=== PATIENT | male | born 1995 | race Caucasian/White ===

== ENCOUNTER 2023-03-01 16:20 | Emergency (ER) | payer OTHER, BC, SELFPAY ==
[2023-03-01 16:25] VITALS: BP 161/96; PULSE 93; RESP 16; TEMP 36.5; O2SAT 96; BMI 48.8
--- NOTE | 2023-03-01 16:27 | ED_ITS ---
HPI - General Adult General Chief complaint: Eye Problems Stated complaint: forgeign object right eye ,work inj Time Seen by Provider: 03/01/23 17:39 Source: patient Mode of arrival: ambulatory History of Present Illness HPI narrative: 27-year-old male denies being a diabetic and states that he was at work with protective lenses on and hammering on an object in and states that the glasses fell down and something got into his right eye. He did copiously irrigate the right eye but states he is still having residual discomfort. Related Data Previous Rx's Medication Instructions Recorded erythromycin 5 mg/gram (0.5 %) eye 1 appl ophthalmic-Right DAILY 3 03/01/23 ointment days #3.5 grams Allergies Allergy/AdvReac Type Severity Reaction Status Date / Time naproxen [From NAPROSYN] Allergy Unknown HIVES Verified 03/01/23 16:29 Review of Systems Review of Systems: Pertinent positives and negatives as stated in HPI PMFSH Past Medical History Source: nursing notes reviewed Physical Exam ED Vital Signs: Vital Signs - 24 hr 03/01/23 16:25 Temperature 97.7 F Pulse Rate 93 Respiratory Rate 16 Blood Pressure 161/96 H Pulse Oximetry 96 Oxygen Delivery Method Room Air BMI result Body Mass Index 48.8 VITAL SIGNS: Reviewed. GENERAL: Well developed, well nourished, in no acute distress. HEAD: Normocephalic/atraumatic EYES: PERRLA, EOMI, fluorescein exam did not demonstrate corneal abrasion and no evidence to suggest foreign body EARS: Ext canals without abnormality NOSE: Nares patent bilateral OROPHARYNX: no oral lesions noted, posterior pharynx clear NECK: Supple, no adenopathy LUNGS: Normal breath sounds. No adventitious sounds or accessory muscle use. SpO2<96> CARDIOVASCULAR: Regular rate and rhythm without noted murmurs ABDOMEN: Soft, non-tender, non-distended with bowel sounds. MUSCULOSKELETAL: No tenderness, deformities, or effusions noted on gross inspection. EXTREMITIES: No cyanosis, clubbing or edema. SKIN: Inspection of the skin reveals no rashes NEUROLOGIC: Alert and oriented x 4. Strength and sensation to light touch were grossly intact x 4. Course Course Course Narrative: This is an RME: Additional HPI, ROS, PE not included below [facility] 27 [facility] male presents w/ FB sensation to R eye lid feels like there is metal in his eye. Was wearing safety googles. Plan- stain, visual acuity Medications Administered Discontinued Medications Generic Name Dose Route Start Last Admin Trade Name Joanie PRN Reason Stop Dose Admin Fluorescein Sodium 1 strip 03/01/23 16:28 03/01/23 17:41 Fluorescein Sodium Strip EYE-BOTH 03/01/23 16:29 1 strip ONCE ONE Administration Tetracaine HCl 3 drop 03/01/23 16:28 03/01/23 17:41 Tetracaine Hcl/Pf 0.5% Oph Naz 4 Ml Drops EYE-BOTH 03/01/23 16:29 3 drop ONCE ONE Administration Medical Decision Making Medical Decision Making MDM Narrative: 27-year-old male with history and clinical presentation consistent with iritis after foreign body. After fluorescein exam there was no evidence of retained foreign body within the eye, no double or blurry vision, no pain on extraocular movement, good pupillary reflex,. Further irrigated patient's I will discharged on 3 days of daily erythromycin ointment. Differential Diagnosis Please see the discussion above Discharge Plan Discharge Clinical Impression: Foreign body in eyeball, right, Iritis Patient Disposition: Home, Self-Care Instructions: Iritis (ED), Eye Foreign Body (ED) Additional Instructions: 1. Take medication as prescribed. Prescriptions: New erythromycin 5 mg/gram (0.5 %) ointment 1 appl ophthalmic-Right DAILY 3 Days Qty: 3.5 0RF
[2023-03-01] MEDS: Fluorescein Sodium STRIP 1 STRIP EYE-BOTH (17:41)
[2023-03-01] MEDS: Tetracaine HCl/PF 0.5% Oph Sol 4 ML DROPS 3 DROP EYE-BOTH (17:41)
[2023-03-01] MEDS: Erythromycin Base 0.5% Oph Oin 1 GM TUBE 1 CM EYE-RIGHT (18:39)
== END 2023-03-01 18:40 | disposition home or self-care (01) ==
PROVIDERS: Emergency Provider Student in an Organized Health Care Education/Training Program
DX: T15.91XA Foreign body on external eye, part unspecified, right eye, initial encounter (principal); H20.9 Unspecified iridocyclitis; Y93.89 Activity, other specified; Y92.9 Unspecified place or not applicable; Y99.0 Civilian activity done for income or pay
CPT/HCPCS: 99281; 99283